=== PATIENT | male | born 1955 | race Caucasian/White ===

== ENCOUNTER 2017-06-17 09:41 | Emergency (ER) | payer OTHER ==
[~2017-06-17] VITALS: Ht 160 cm; Wt 95.3 kg
[2017-06-17] MEDS ORDERED: DILTIAZEM 24HR180 MG (10:07)
[2017-06-17] MEDS ORDERED: VALSARTAN-HCTZ1 EAC1 (10:08)
[2017-06-17] MEDS ORDERED: METFORMIN HCL500 MG (10:08)
== END 2017-06-17 12:44 | disposition home or self-care (01) ==
LOC: ER 09:41
DX: I10 Essential (primary) hypertension (principal); F06.4 Anxiety disorder due to known physiological condition